=== PATIENT | male | born 2000 | race Caucasian/White ===

== ENCOUNTER 2018-08-03 15:22 | Emergency (ER) | payer OTHER, SELFPAY ==
[2018-08-03 15:23] VITALS: BP 145/79; PULSE 84; RESP 16; TEMP 36.3; O2SAT 98; BMI 26.9
--- NOTE | 2018-08-03 15:43 | ED.DCSUM_ITS ---
- ER Visit Summary Date of Service: 08/03/18 Chief Complaint: Abdominal pain with nausea and vomiting History of Present Illness: The patient is a 18 M with abdominal pain for the past 2 months. The pain is in his upper abdomen and does not radiate. It was worse over the past week. He has been trying Zantac and Prilosec with no improvement. He called his primary doctor and was referred to GI, Dr. Gan. He was given an appointment for a month and a half in the future, and because of his worsening symptoms, he sought medical care today. He went to urgent care but was referred here. He also reports some associated nausea and vomiting. This has been going on for up to 7 months after eating, but it seems to be getting worse. Denies any history of gastritis, reflux, ulcers. He never had endoscopy. No abdominal surgeries. No liver, gallbladder, pancreas disease. No fevers currently or other associated symptoms. Physical Examination: Afebrile and vital signs are unremarkable. Alert and oriented. No acute distress. Skin appears normal in color without pallor or jaundice. Heart regular rate and rhythm. Lungs clear. Abdomen soft and nontender. No guarding or rebound. Test Results: Labs pending. Emergency Department Course and Treatment: Given the patient's progressive symptoms and failed outpatient treatment, I did check some basic labs. I did not believe that imaging would be helpful given his symptoms and findings. He was also treated with fluids, Zofran, and a GI cocktail. Will reassess. Work-up was unremarkable. Patient will continue his anti-inflammatories. He will continue Carafate. Will add Zofran. Follow-up with GI. Treatment Plan: As above Disposition: Discharge Impression: 1. Epigastric pain This note was generated with [employer] software. It may contain incorrect words, spelling, and punctuation that were not noted in review of the chart prior to signing ED Disposition - Plan for ED Patient: Referrals: Shilpa Villanueva MD [Primary Care Provider] -
[2018-08-03 16:00] LABS: Absolute Lymphocyte Count 2.28 X10^3/ul (0.83-4.51); Absolute Neutrophil Count 4.5 X10^3/uL (2.0-7.7); Basophil# 0.02 X10^3/uL; Basophil% 0.3 % (0-1); Eosinophil# 0.06 X10^3/uL; Eosinophils% 0.8 % (0-5); Hematocrit 43.8 % (40-54); Hemoglobin 15.1 g/dl (13.0-16.5); Lymphocyte # 2.28 X10^3/ul (4.0); Lymphocyte % 29.7 % (19-41); Mean Corp Hgb Conc 34.5 g/gl (32-36); Mean Corpuscular Hgb 32.1 pg (27.0-32.0); Mean Platelet Vol. 9.3 fl (6.2-12.0); Monocyte# 0.82 X10^3/uL; Monocyte% 10.7 % (0-10); Neutrophil # 4.49 X10^3/uL (2.7-7.7); Neutrophil % 58.4 % (47-70); Platelet Count 191 K/mm3 (150-450); RBC Distribution Width CV 13.2 % (11.6-14.6); RBC Distribution Width SD 44.7 fl (35.1-43.9); Red Blood Count 4.71 M/mm3 (4.6-6.2); White Blood Count 7.7 K/mm3 (4.4-11.0)
[2018-08-03 16:05] LABS: POSITIVE COUNT NO; POSITIVE DIFFERENTIAL NO; POSITIVE MORPHOLOGY NO
[2018-08-03 16:19] LABS: ALB/GLOB Ratio 1.1 RATIO (0.9-2.4); AST(SGOT) 19 U/L (15-37); Alanine Aminotransfer ALT/SGPT 26 U/L (16-61); Albumin, Serum 4.2 g/dL (3.2-5.0); Alkaline Phosphatase 71 U/L (45-117); Anion Gap 6 (5-15); BUN 14 mg/dL (7-18); BUN/Creat Ratio 14.9 RATIO (10-20); Calcium,Total 9.2 mg/dL (8.5-10.1); Chloride 105 mmol/L (98-107); Creatinine, Serum 0.94 mg/dL (0.70-1.30); EST Glomerular Filtration Rate 109 mL/min (>60); Est Glom Filt Rate - Afr Amer 131 mL/min (>60); Estimated Creatinine Clearance 125.35 ml/min; Globulin 3.7 g/dL (2.2-4.2); Glucose 98 mg/dL (74-106); Lipase 124 U/L (73-393); Potassium 3.9 mmol/L (3.5-5.1); Protein, Total 7.9 g/dL (6.4-8.2); Sodium Level 139 mmol/L (136-145)
--- NOTE | 2018-08-03 16:31 | ED.DEP ---
ED Disposition - Plan for ED Patient: Instructions: ED Abdominal Pain Unkn Cause Prescriptions: Ondansetron [Zofran Odt] 4 mg PO Q8H PRN PRN #10 tab PRN Reason: Nausea Referrals: Cricket Gan MD [NON-STAFF] -
[2018-08-03 16:52] VITALS: BP 119/77; PULSE 68; RESP 16; O2SAT 98
--- NOTE | 2018-08-03 16:53 | ED.RN ---
REVIEWED D/C INSTRUCTIONS, FOLLOW UP CARE, PRESCRIPTION, AND S/S THAT WOULD WARRANT A RETURN TO THE ED WITH PT. PT VERBALIZED AN UNDERSTANDING AND DENIES FURTHER QUESTIONS FOR THIS RN. PT SKIN P/W/D, RESP EVEN AND UNLABORED, PT A&O X 3, NO DISTRESS NOTED. PT AMBULATED OUT OF ED, GAIT STEADY.
== END 2018-08-03 16:52 | disposition home or self-care (01) ==
PROVIDERS: Emergency Provider Emergency Medicine; Family Provider Pediatrics; PCP Pediatrics
DX: R10.13 Epigastric pain (principal); R11.2 Nausea with vomiting, unspecified; Z72.0 Tobacco use
CPT/HCPCS: 80053; 83690; 85025; 99283; A4216; J2405

== ENCOUNTER 2018-09-20 12:16 | Emergency (ER) | payer OTHER, SELFPAY ==
[2018-09-20 12:17] VITALS: BP 134/69; PULSE 78; RESP 16; TEMP 36.7; O2SAT 99; BMI 25.8
--- NOTE | 2018-09-20 12:43 | ED.VISSUMM ---
- ER Visit Summary Date of Service: 09/20/18 Chief Complaint: Nausea History of Present Illness: The patient is a 18 M who presents with nausea. He did vomit once today. There was dark blood that was tinged within the vomit. It was not a lot per the patient. He has had stomach pain for a year. He had a recent endoscopy done which showed gastritis. He is on Protonix. At one point he was given Carafate but he has not been taking it. He took nothing for nausea at home. He denies any other symptoms. Physical Examination: Vital signs reviewed. HEENT exam unremarkable. Heart is regular rate and rhythm without murmurs. Lungs are clear to auscultation. Abdomen is soft and nontender. Extremities reveal no edema. Skin exam normal. Neurologic exam normal. Test Results: None performed Emergency Department Course and Treatment: The patient was given Zofran and a GI cocktail. I do not feel he requires any further laboratory studies. I will treat him with Zofran and Carafate at home. He will continue his Protonix. He will call his GI physician for follow-up Treatment Plan: [] Disposition: Discharge Impression: Nausea This note was generated with [employer] dictation software. It may contain incorrect words, spelling, and punctuation that were not noted in review of the chart prior to signing ED Disposition - Plan for ED Patient: Referrals: Shilpa Villanueva MD [Primary Care Provider] -
[2018-09-20] MEDS: Ondansetron ODT 4 MG Tablet 8 MG PO (12:51)
[2018-09-20] MEDS: Mag Hydrox/Al Hydrox/Simeth 30 ML UDC PO (12:51)
--- NOTE | 2018-09-20 13:12 | ED.DEP ---
ED Disposition - Plan for ED Patient: Disposition: Home or Assisted Living Instructions: DIET, Vomiting or Diarrhea [4yr-Adult] Prescriptions: Sucralfate [Carafate] 1 gm PO 4X/DAY #90 tab Transmission Status: Pending to [facility] Ondansetron [Zofran Odt] 4 mg PO Q8H PRN PRN #10 tab PRN Reason: Nausea Transmission Status: Pending to [facility] Referrals: Shilpa Villanueva MD [Primary Care Provider] - Additional Instructions: Your prescriptions were transmitted to [facility]
[2018-09-20 13:29] VITALS: BP 127/68; PULSE 60; RESP 16; O2SAT 98
== END 2018-09-20 13:30 | disposition home or self-care (01) ==
PROVIDERS: Emergency Provider Emergency Medicine; Family Provider Pediatrics; PCP Pediatrics
DX: R11.2 Nausea with vomiting, unspecified (principal); R10.9 Unspecified abdominal pain; Z87.19 Personal history of other diseases of the digestive system
CPT/HCPCS: 99283

== ENCOUNTER 2020-08-15 15:24 | Emergency (ER) | payer OTHER, SELFPAY ==
[2020-08-15 15:25] VITALS: BP 113/75; PULSE 106; RESP 18; TEMP 36.6; O2SAT 97; BMI 26.6
[2020-08-15 15:28] VITALS: BP 113/75; PULSE 96; RESP 18; TEMP 36.6; O2SAT 97
--- NOTE | 2020-08-15 15:42 | EX.ED.DYSGE1 ---
HPI History of Present Illness Chief Complaint: General Illness Informant: patient Onset/Context/Timing Onset: Days (2-3) Context: Gradual Onset (about 8-12 hrs after receiving 2nd dose of Moderna covid-19 vaccine) Timing: Continuous Quality: achy Location: all over Current Severity: Moderate Maximum Severity: Moderate Worsened by: n/a Relieved by: n/a Associated Symptoms Associated Symptoms: back pain diffusely w/o radiation, chills, malaise PFSH PFSH no medical history Home Medications dextroamphetamine-amphetamine 20 mg PO TID 09/20/18 [History Last Taken Unknown] ondansetron 4 mg PO Q8H PRN PRN #10 tab 09/20/18 [Rx Last Taken Unknown] pantoprazole 40 mg PO DAILY 09/20/18 [History Last Taken Unknown] sucralfate 1 gm PO 4X/DAY #90 tab 09/20/18 [Rx Last Taken Unknown] ondansetron HCl [Zofran] 8 mg PO Q8H PRN #12 tab 08/15/20 [Rx Last Taken Unknown] Allergy/AdvReac Type Severity Reaction Status Date / Time No Known Allergies Allergy Verified 08/15/20 15:39 Social History Smoking Status: Former smoker ROS ROS ED Constitutional Constitutional ED: Reports chills and malaise; Denies fever(s) Eyes Eyes: Denies change in vision or diplopia ENT ENT ED: Denies rhinorrhea or sore throat Cardiovascular Cardiovascular: Denies chest pain or palpitations Respiratory/Chest Respiratory/Chest: Denies cough or dyspnea Gastrointestinal Gastrointestinal: Denies abdominal pain, diarrhea, nausea or vomiting Genitourinary Genitourinary ED: Denies dysuria or hematuria Musculoskeletal Musculoskeletal: Reports back pain and myalgias; Denies neck pain Integumentary Denies abscess or rash Neurologic Neurologic: Denies headache(s), paresthesias or weakness Psychiatric Psychiatric: Denies anxiety or suicidal thoughts EXAM Physical Exam Const Vital Signs: 08/15/20 15:25 08/15/20 15:28 08/15/20 15:39 Temperature 97.9 F 97.9 F Temperature Source Temporal Temporal Pulse Rate 106 H 96 Respiratory Rate 18 18 Respiratory Effort Normal Non-Labored Respiratory Pattern Normal Blood Pressure 113/75 113/75 Blood Pressure Mean 87 87 Pulse Ox 97 97 Oxygen Delivery Method Room Air Room Air Positive well nourished and well developed General Appearance ED: well developed and NAD HEENT Reports moist mucous membranes normocephalic and atraumatic Eyes PERRL and EOMs intact bilaterally Neck full ROM and supple Resp normal respiratory effort and clear to auscultation bilaterally Cardio regular rate, regular rhythm and no murmurs GI non-tender and non-distended Auscultation: normoactive bowel sounds Palpation: soft Back/Spine no CVA tenderness General Back: other FROM Extremity normal to inspection General Extremety ED: Negative for edema, pulses abnormal or tenderness General Extremity: Negative for edema or pulses abnormal Neuro oriented x3, CN's II-XII intact bilaterally, no sensory deficits noted and gait normal Sensorium / Orientation: awake and alert Motor Exam: strength 5/5 throughout Skin no rashes or lesions noted and no wounds MDM MDM MDM Narrative Medical decision making narrative: Patient has normal exam, normal vital signs, and likely having side effects from the second moderna in a Covid vaccine. He is reassured, he is given a note for work as requested, a dose of Zofran and a prescription to use as needed. Discharge Plan Triage Chief Complaint: General Illness ED Provider: Angel Ackerman Dx/Rx/DC Orders Clinical Impression: Side effects of vaccination Instructions: ED Drug Reaction, Other Prescriptions: New ondansetron HCl [Zofran] 4 mg tablet 8 mg PO Q8H PRN (Reason: nausea and vomiting) Qty: 12 RF: 0 No Action pantoprazole 40 MG tablet,delayed release (DR/EC) 40 mg PO DAILY RF: 0 dextroamphetamine-amphetamine 20 MG tablet 20 mg PO TID RF: 0 sucralfate 1 GM tablet 1 gm PO 4X/DAY Qty: 90 RF: 0 ondansetron 4 MG tablet 4 mg PO Q8H PRN PRN (Reason: Nausea) Qty: 10 RF: 0 Stand Alone Forms: ED Work / School Excuse Primary Care Provider: Shilpa Villanueva Referrals: Doctor,Your [STAFF PHYSICIAN] - 3-5 Days if not improving Disposition Disposition: Home, self care
[2020-08-15] MEDS: Ondansetron ODT 4 MG Tablet 8 MG PO (16:09)
== END 2020-08-15 16:11 | disposition home or self-care (01) ==
LOC: ED 16:01
PROVIDERS: Emergency Provider Emergency Medicine
DX: R53.81 Other malaise (principal); R68.83 Chills (without fever); M79.10 Myalgia, unspecified site; T50.B95A Adverse effect of other viral vaccines, initial encounter; Y92.9 Unspecified place or not applicable; Z87.891 Personal history of nicotine dependence
CPT/HCPCS: 99283

== ENCOUNTER 2020-08-16 13:41 | Emergency (ER) | payer OTHER, SELFPAY ==
[2020-08-15 15:25] VITALS: BMI 26.6
[2020-08-16 13:42] VITALS: BP 119/66; PULSE 89; RESP 18; TEMP 36.7; O2SAT 99; BMI 27.1
--- NOTE | 2020-08-16 14:05 | EX.ED.DYSGE1 ---
HPI History of Present Illness Chief Complaint: Nausea/Vomiting Informant: patient Onset/Context/Timing Onset: Today Context: Gradual Onset Timing: Continuous Current Severity: Moderate Maximum Severity: Moderate Narrative Narrative: Patient is a 20-year-old male otherwise healthy the presents to the emergency department nausea, vomiting, near syncope. Patient was in his normal state of health. He states that this morning, he woke with some abdominal cramping. He states he had about 3 or 4 episodes of nonbloody, nonbilious emesis. Shortly thereafter, he states he was lightheaded and felt tingly. He states that he almost fell over. He denies any focal abdominal pain. He denies fever or chills. He denies cough or shortness of breath. He denies any recent sick contacts. He has been vaccinated against Covid. Prior similar symptoms: No Recent Illness/Hospitalization: No PFSH PFSH Home Medications dextroamphetamine-amphetamine 20 mg PO TID 09/20/18 [History Last Taken Unknown] ondansetron 4 mg PO Q8H PRN PRN #10 tab 09/20/18 [Rx Last Taken Unknown] pantoprazole 40 mg PO DAILY 09/20/18 [History Last Taken Unknown] sucralfate 1 gm PO 4X/DAY #90 tab 09/20/18 [Rx Last Taken Unknown] ondansetron HCl [Zofran] 8 mg PO Q8H PRN #12 tab 08/15/20 [Rx Last Taken Unknown] Allergy/AdvReac Type Severity Reaction Status Date / Time No Known Allergies Allergy Verified 08/16/20 13:43 no surgical history Social History Smoking Status: Former smoker ROS ROS ED Constitutional Constitutional ED: Denies chills or fever(s) Eyes Eyes: Denies blurry vision or change in vision ENT ENT ED: Denies ear pain or sore throat Cardiovascular Cardiovascular: Denies chest pain or palpitations Respiratory/Chest Respiratory/Chest: Denies cough, dyspnea or dyspnea on exertion Gastrointestinal Gastrointestinal: Reports nausea and vomiting; Denies abdominal pain Genitourinary Genitourinary ED: Denies dysuria or urinary frequency Musculoskeletal Musculoskeletal: Denies arthralgias or myalgias Integumentary Denies rash Neurologic Neurologic: Denies headache(s) or paresthesias Psychiatric Psychiatric: Denies anxiety or depression Endocrine Endocrinology: Denies polydipsia or polyuria Allergic/Immunologic Allergic/Immunologic ED: Denies urticaria EXAM Physical Exam Const Vital Signs: 08/16/20 13:42 Temperature 98.0 F Temperature Source Temporal Pulse Rate 89 Respiratory Rate 18 Blood Pressure 119/66 Blood Pressure Mean 83 Pulse Ox 99 Oxygen Delivery Method Room Air Positive well nourished and well developed General Appearance ED: well developed HEENT Reports normocephalic, head/scalp atraumatic and moist mucous membranes Eyes PERRL and EOMs intact bilaterally Neck no lymphadenopathy and supple General: Negative for tenderness Chest Wall inspection of chest normal Resp normal respiratory effort and clear to auscultation bilaterally Cardio regular rate, regular rhythm and no murmurs GI normal to inspection, nondistended, normoactive bowel sounds Palpation: Negative for tender, guarding or rebound tenderness present Back/Spine no CVA tenderness Cervical Spine: Negative for cervical spine tenderness Thoracic Spine / Upper Back: Negative for thoracic spinal tenderness Extremity normal to inspection General Extremety ED: Negative for tenderness Neuro oriented x3 and CN's II-XII intact bilaterally Neuro Narrative: No focal deficits appreciated. Sensorium / Orientation: alert Psych mental status grossly normal Skin no rashes or lesions noted, no wounds and skin turgor normal MDM MDM MDM Narrative Medical decision making narrative: The patient presents with nausea and vomiting. His abdomen is soft and nontender. He has no focal rebound or guarding. IV was established. Labs were obtained. The patient's labs are unremarkable. He was aggressively hydrated and given antiemetics. On reevaluation, he is feeling markedly improved. At this point, I do not suspect a dangerous cause of his symptoms. He will be discharged home. Impression 1. Nausea vomiting Lab Data Attestation: I reviewed the patient's lab results. Labs: Laboratory Results - last 24 hr 08/16/20 08/16/20 14:35 14:35 WBC 6.9 RBC 4.98 Hgb 15.3 Hct 45.4 MCV 91.2 MCH 30.7 MCHC 33.7 RDW Std Deviation 41.3 RDW Coeff of Vargas 12.4 Plt Count 226 MPV 9.7 Immature Gran % (Auto) 0.300 Neut % (Auto) 71.7 H Lymph % (Auto) 19.5 [place] % (Auto) 7.1 Eos % (Auto) 1.0 Baso % (Auto) 0.4 Absolute Neuts (auto) 5.0 Absolute Lymphs (auto) 1.35 Nucleated RBC % 0 Sodium 138 Potassium 4.0 Chloride 104 Carbon Dioxide 28.0 Anion Gap 6 BUN 14 Creatinine 1.07 Estim Creat Clear Calc 111.81 Est GFR (MDRD) Af Amer 111 Est GFR (MDRD) Non-Af 92 BUN/Creatinine Ratio 13.1 Glucose 93 Calcium 9.5 Total Bilirubin 0.60 AST 15 ALT 22 Alkaline Phosphatase 62 Total Protein 8.3 H Albumin 4.2 Globulin 4.1 Albumin/Globulin Ratio 1.0 Lipase 203 Discharge Plan Triage Chief Complaint: Nausea/Vomiting ED Provider: Robe Finn Dx/Rx/DC Orders Instructions: ED Vomiting (Adult) Prescriptions: No Action pantoprazole 40 MG tablet,delayed release (DR/EC) 40 mg PO DAILY RF: 0 dextroamphetamine-amphetamine 20 MG tablet 20 mg PO TID RF: 0 sucralfate 1 GM tablet 1 gm PO 4X/DAY Qty: 90 RF: 0 ondansetron 4 MG tablet 4 mg PO Q8H PRN PRN (Reason: Nausea) Qty: 10 RF: 0 ondansetron HCl [Zofran] 4 mg tablet 8 mg PO Q8H PRN (Reason: nausea and vomiting) Qty: 12 RF: 0 Stand Alone Forms: ED Work / School Excuse Primary Care Provider: Care Physician,No Primary Referrals: Care Physician,No Primary [Primary Care Provider] -
[2020-08-16] MEDS: 0.9% Normal Saline 1,000 ML 1000 ML IV (14:32)
[2020-08-16] MEDS: Ondansetron 4 MG/2 ML Vial IV (14:32)
[2020-08-16 14:57] LABS: Absolute Lymphocyte Count 1.35 X10^3/uL (0.83-4.51); Basophil# 0.03 X10^3/uL; Basophil% 0.4 % (0-1); Eosinophil# 0.07 X10^3/uL; Hematocrit 45.4 % (40-54); Hemoglobin 15.3 g/dL (13.0-16.5); Lymphocyte # 1.35 X10^3/ul (0.83-4.51); Lymphocyte % 19.5 % (19-41); Mean Corp Hgb Conc 33.7 g/dL (32-36); Mean Corpuscular Hgb 30.7 pg (27.0-32.0); Mean Corpuscular Volume 91.2 fL (80-94); Mean Platelet Vol. 9.7 fl (6.2-12.0); Monocyte# 0.49 X10^3/uL; Monocyte% 7.1 % (0-10); NRBC Flagged by Analyzer 0 % (0-5); Neutrophil # 4.98 X10^3/uL (2.7-7.7); Neutrophil % 71.7 % (47-70); Platelet Count 226 K/mm3 (150-450); RBC Distribution Width CV 12.4 % (11.6-14.6); RBC Distribution Width SD 41.3 fl (35.1-43.9); Red Blood Count 4.98 M/mm3 (4.6-6.2); White Blood Count 6.9 K/mm3 (4.4-11.0)
[2020-08-16 15:03] LABS: AST(SGOT) 15 U/L (15-37); Alanine Aminotransfer ALT/SGPT 22 U/L (16-61); Albumin, Serum 4.2 g/dL (3.2-5.0); Alkaline Phosphatase 62 U/L (45-117); Anion Gap 6 (5-15); BUN 14 mg/dL (7-18); BUN/Creat Ratio 13.1 RATIO (10-20); Calcium,Total 9.5 mg/dL (8.5-10.1); Chloride 104 mmol/L (98-107); Creatinine, Serum 1.07 mg/dL (0.70-1.30); EST Glomerular Filtration Rate 92 mL/min (>60); Est Glom Filt Rate - Afr Amer 111 mL/min (>60); Estimated Creatinine Clearance 111.81 ml/min; Globulin 4.1 g/dL (2.2-4.2); Glucose 93 mg/dL (74-106); Lipase 203 U/L (73-393); Protein, Total 8.3 g/dL (6.4-8.2); Sodium Level 138 mmol/L (136-145)
[2020-08-16 15:37] VITALS: BP 120/64; PULSE 88; RESP 16; O2SAT 98
== END 2020-08-16 15:40 | disposition home or self-care (01) ==
LOC: ED 14:12
PROVIDERS: Emergency Provider Emergency Medicine
DX: R11.2 Nausea with vomiting, unspecified (principal); R10.9 Unspecified abdominal pain; R42 Dizziness and giddiness; R20.2 Paresthesia of skin; Z87.891 Personal history of nicotine dependence
CPT/HCPCS: 80053; 83690; 85025; 96361; 96374; 99283; J7030; J2405